=== PATIENT | male | born 1965 | race African-American/Black ===

== ENCOUNTER → 2016-07-26 | Outpatient (CLI) | payer OTHER ==
[2016-07-26 14:02] LABS: ALBUMIN 3.8 GM/DL (3.2-5.2); ANION GAP 7 MEQ/L (8-16); BLOOD UREA NITROGEN 12 MG/DL (7-18); CALCIUM LEVEL 9.1 MG/DL (8.5-10.1); CARBON DIOXIDE LEVEL 30 MEQ/L (21-32); CHLORIDE LEVEL 102 MEQ/L (98-107); CREATININE FOR GFR 1.19 MG/DL (0.70-1.30); GLOMERULAR FILTRATION RATE > 60.0 (>56); GLUCOSE, FASTING 267 MG/DL (70-105); PHOSPHORUS LEVEL 3.5 MG/DL (2.5-4.9); POTASSIUM SERUM 4.8 MEQ/L (3.5-5.1); SODIUM LEVEL 139 MEQ/L (136-145)
== END | disposition home or self-care (01) ==
LOC: M SMT 08:14
PROVIDERS: ATTEND Physician Assistant
DX: I11.9 Hypertensive heart disease without heart failure (principal)

== ENCOUNTER → 2016-10-01 | Outpatient (REF) | payer OTHER, MEDICAID ==
[2016-10-01 12:13] LABS: MEAN CORPUSCULAR HEMOGLOBIN 23.4 pg (27.0-33.0); MEAN CORPUSCULAR HGB CONC 28.8 g/dl (32.0-36.5); MEAN CORPUSCULAR VOLUME 81.2 fl (80.0-96.0); RED CELL DISTRIBUTION WIDTH 16.4 % (11.5-14.5); WHITE BLOOD COUNT 6.5 K/mm3 (4.0-10.0)
[2016-10-01 12:36] LABS: ALBUMIN 3.6 GM/DL (3.2-5.2); ALBUMIN/GLOBULIN RATIO 1.13 (1.00-1.93); ALKALINE PHOSPHATASE 108 U/L (45-117); ALT/SGPT 32 U/L (12-78); ANION GAP 6 MEQ/L (8-16); AST/SGOT 31 U/L (15-37); BILIRUBIN,TOTAL 0.9 MG/DL (0.2-1.0); BLOOD UREA NITROGEN 9 MG/DL (7-18); CARBON DIOXIDE LEVEL 30 MEQ/L (21-32); CHLORIDE LEVEL 105 MEQ/L (98-107); CHOLESTEROL LEVEL 117 MG/DL (<200); CREATININE FOR GFR 1.09 MG/DL (0.70-1.30); GLOMERULAR FILTRATION RATE > 60.0 (>56); GLUCOSE, FASTING 164 MG/DL (70-105); POTASSIUM SERUM 4.1 MEQ/L (3.5-5.1); SODIUM LEVEL 141 MEQ/L (136-145); TOTAL PROTEIN 6.8 GM/DL (6.4-8.2); TRIGLYCERIDES LEVEL 113 MG/DL (<150)
== END ==
LOC: M SFHCLERA 08:19
PROVIDERS: ATTEND Physician Assistant
DX: I10 Essential (primary) hypertension (principal); E78.2 Mixed hyperlipidemia; E11.65 Type 2 diabetes mellitus with hyperglycemia

== ENCOUNTER → 2017-01-16 | Outpatient (REF) | payer MEDICAID, OTHER ==
[2017-01-16 19:45] LABS: ALBUMIN 3.7 GM/DL (3.2-5.2); ALBUMIN/GLOBULIN RATIO 1.16 (1.00-1.93); ALKALINE PHOSPHATASE 103 U/L (45-117); ALT/SGPT 29 U/L (12-78); ANION GAP 10 MEQ/L (8-16); AST/SGOT 17 U/L (15-37); BILIRUBIN,TOTAL 0.6 MG/DL (0.2-1.0); BLOOD UREA NITROGEN 14 MG/DL (7-18); CALCIUM LEVEL 8.1 MG/DL (8.5-10.1); CARBON DIOXIDE LEVEL 25 MEQ/L (21-32); CHLORIDE LEVEL 107 MEQ/L (98-107); CREATININE FOR GFR 1.05 MG/DL (0.70-1.30); GLOMERULAR FILTRATION RATE > 60.0 (>56); GLUCOSE, FASTING 124 MG/DL (70-105); SODIUM LEVEL 142 MEQ/L (136-145); TOTAL PROTEIN 6.9 GM/DL (6.4-8.2)
== END ==
LOC: M SFHCLERA 14:55
PROVIDERS: ATTEND Physician Assistant
DX: E11.65 Type 2 diabetes mellitus with hyperglycemia (principal)

== ENCOUNTER → 2017-06-13 | Outpatient (CLI) | payer OTHER | LOC: M RAD 06:08 | DX: I70.213 Atherosclerosis of native arteries of extremities with intermittent claudication, bilateral legs (principal) | CPT/HCPCS: 93926 ==

== ENCOUNTER → 2017-07-15 | Outpatient (CLI) | payer OTHER, MEDICAID ==
[2017-07-15 07:38] LABS: BASO % 0.3 % (0.0-1.0); EOS # 0.2 10^3/uL (0.0-0.50); EOS % 2.6 % (0.0-3.0); HEMATOCRIT 30.4 % (42.0-52.0); HEMOGLOBIN 8.5 g/dl (14.0-18.0); IMMATURE GRANULOCYTE % 0.3 % (0-0); LYMPH # 1.7 10^3/uL (1.5-4.5); LYMPH % 26.9 % (24.0-44.0); MEAN CORPUSCULAR HEMOGLOBIN 18.2 pg (27.0-33.0); MONO # 0.8 10^3/uL (0.0-0.8); MONO % 12.3 % (0.0-5.0); NEUTROPHILS # 3.7 10^3/uL (1.8-7.7); NEUTROPHILS % 57.6 % (36.0-66.0); PLATELET COUNT, AUTOMATED 428 10^3/uL (150-450); RED BLOOD COUNT 4.68 10^6/uL (4.30-6.10); RED CELL DISTRIBUTION WIDTH 18.6 % (11.5-14.5); WHITE BLOOD COUNT 6.4 10^3/uL (4.0-10.0)
[2017-07-15 08:31] LABS: ANION GAP 8 MEQ/L (8-16); BLOOD UREA NITROGEN 13 MG/DL (7-18); CALCIUM LEVEL 8.8 MG/DL (8.5-10.1); CARBON DIOXIDE LEVEL 26 MEQ/L (21-32); CHLORIDE LEVEL 104 MEQ/L (98-107); CREATININE FOR GFR 1.18 MG/DL (0.70-1.30); GLOMERULAR FILTRATION RATE > 60.0 (>56); GLUCOSE, FASTING 255 MG/DL (70-100); POTASSIUM SERUM 4.3 MEQ/L (3.5-5.1); SODIUM LEVEL 138 MEQ/L (136-145)
== END ==
LOC: M LAB 06:43
DX: I70.213 Atherosclerosis of native arteries of extremities with intermittent claudication, bilateral legs (principal); M79.605 Pain in left leg
CPT/HCPCS: 80048

== ENCOUNTER → 2017-07-24 | Outpatient (REF) | payer OTHER, MEDICAID ==
[2017-07-24 20:33] LABS: HEMATOCRIT 28.9 % (42.0-52.0); HEMOGLOBIN 8.1 g/dl (14.0-18.0); MEAN CORPUSCULAR HEMOGLOBIN 18.6 pg (27.0-33.0); MEAN CORPUSCULAR VOLUME 66.4 fl (80.0-96.0); PLATELET COUNT, AUTOMATED 348 10^3/uL (150-450); RED BLOOD COUNT 4.35 10^6/uL (4.30-6.10); RED CELL DISTRIBUTION WIDTH 18.9 % (11.5-14.5); WHITE BLOOD COUNT 6.5 10^3/uL (4.0-10.0)
[2017-07-24 21:21] LABS: ESTIMATED AVERAGE GLUCOSE 171 MG/DL (60-110); HEMOGLOBIN A1c 7.6 %
[2017-07-24 21:22] LABS: FERRITIN 3 NG/ML (26-388); IRON (FE) 17 UG/DL (65-175); PERCENT SATURATION 4.2 % (19.7-50.0); TOTAL IRON BINDING CAPACITY 407 UG/DL (250-450)
[2017-07-24 21:27] LABS: FOLATE 11.7 NG/ML (>5.4); VITAMIN B12 LEVEL 282 PG/ML (247-911)
== END ==
LOC: M SFHCLERA 15:48
DX: D64.9 Anemia, unspecified (principal); E11.65 Type 2 diabetes mellitus with hyperglycemia
CPT/HCPCS: 82746

== ENCOUNTER → 2017-08-14 | Outpatient (REF) | payer OTHER, MEDICAID ==
[2017-08-14 12:33] LABS: HEMATOCRIT 32.8 % (42.0-52.0); HEMOGLOBIN 9.2 g/dl (14.0-18.0); MEAN CORPUSCULAR HEMOGLOBIN 19.6 pg (27.0-33.0); MEAN CORPUSCULAR VOLUME 69.8 fl (80.0-96.0); PLATELET COUNT, AUTOMATED 350 10^3/uL (150-450); RED CELL DISTRIBUTION WIDTH 23.6 % (11.5-14.5); WHITE BLOOD COUNT 6.8 10^3/uL (4.0-10.0)
[2017-08-14 13:19] LABS: ALBUMIN 3.7 GM/DL (3.2-5.2); ALBUMIN/GLOBULIN RATIO 1.09 (1.00-1.93); ALKALINE PHOSPHATASE 116 U/L (45-117); ALT/SGPT 23 U/L (12-78); ANION GAP 9 MEQ/L (8-16); AST/SGOT 17 U/L (7-37); BILIRUBIN,TOTAL 0.5 MG/DL (0.2-1.0); BLOOD UREA NITROGEN 10 MG/DL (7-18); CALCIUM LEVEL 8.9 MG/DL (8.5-10.1); CARBON DIOXIDE LEVEL 28 MEQ/L (21-32); CHLORIDE LEVEL 103 MEQ/L (98-107); CHOLESTEROL LEVEL 185 MG/DL (<200); CHOLESTEROL RISK RATIO 5.606 (<5); CREATININE FOR GFR 1.02 MG/DL (0.70-1.30); GLOMERULAR FILTRATION RATE > 60.0 (>56); GLUCOSE, FASTING 163 MG/DL (70-100); HDL CHOLESTEROL 33 MG/DL (>40); LDL CHOLESTEROL 114.6 MG/DL (<100); NON-HDL-C 152 MG/DL; POTASSIUM SERUM 4.1 MEQ/L (3.5-5.1); SODIUM LEVEL 140 MEQ/L (136-145); TOTAL PROTEIN 7.1 GM/DL (6.4-8.2); TRIGLYCERIDES LEVEL 187 MG/DL (<150)
== END ==
LOC: M SFHCLERA 09:58
DX: I10 Essential (primary) hypertension (principal); E78.2 Mixed hyperlipidemia; D64.9 Anemia, unspecified

== ENCOUNTER → 2017-09-27 | Outpatient (CLI) | payer OTHER ==
[~2017-09-27] MED LIST: HEPARIN 1,000 UNITS/ML 10ML VIAL (FOR RADIOLOGY& DIALYSIS ONLY) As Ordered; ISOVUE-300 61% 50ML VIAL (Q9967) As Ordered; LIDOCAINE 2% MDV 20 ML VIAL As Ordered; MIDAZOLAM INJ 2 MG/2 ML VIAL (J2250) As Ordered; fentaNYL 100 MCG/2 ML INJECTION (J3010) As Ordered
== END | disposition home or self-care (01) ==
LOC: M IRPRO 08:03
DX: I70.212 Atherosclerosis of native arteries of extremities with intermittent claudication, left leg (principal)
CPT/HCPCS: 36247

== ENCOUNTER → 2017-11-15 | Outpatient (REF) | payer OTHER, MEDICAID ==
[2017-11-15 11:21] LABS: HEMATOCRIT 37.9 % (42.0-52.0); HEMOGLOBIN 11.4 g/dl (13.5-17.5); MEAN CORPUSCULAR HEMOGLOBIN 23.8 pg (27.0-33.0); MEAN CORPUSCULAR HGB CONC 30.1 g/dl (32.0-36.5); MEAN CORPUSCULAR VOLUME 79.3 fl (80.0-96.0); PLATELET COUNT, AUTOMATED 299 10^3/uL (150-450); RED BLOOD COUNT 4.78 10^6/uL (4.30-6.10); WHITE BLOOD COUNT 5.5 10^3/uL (4.0-10.0)
[2017-11-15 12:22] LABS: CHOLESTEROL LEVEL 178 MG/DL (<200); CHOLESTEROL RISK RATIO 5.933 (<5); FERRITIN 14 NG/ML (26-388); HDL CHOLESTEROL 30 MG/DL (>40); IRON (FE) 45 UG/DL (65-175); LDL CHOLESTEROL 126.2 MG/DL (<100); NON-HDL-C 148 MG/DL; TRIGLYCERIDES LEVEL 109 MG/DL (<150)
[2017-11-15 13:19] LABS: ESTIMATED AVERAGE GLUCOSE 154 MG/DL (60-110)
== END ==
LOC: M SFHCLERA 08:36
DX: D64.9 Anemia, unspecified (principal); E11.65 Type 2 diabetes mellitus with hyperglycemia; E78.2 Mixed hyperlipidemia

== ENCOUNTER 2017-11-27 06:44 | Day surgery (SDC) | payer OTHER ==
[2017-11-27] MEDS ORDERED: LIDOCAINE 2% INJ 100 MG/5 ML SDV (FOR ANES.) As Ordered (06:52)
[2017-11-27] MEDS ORDERED: PROPOFOL 200 MG/20 ML VIAL As Ordered ×5 (06:52→08:39)
[2017-11-27] MEDS: NS 1,000 ML IV (07:12)
[2017-11-27] MEDS ORDERED: fentaNYL 100 MCG/2 ML INJECTION (J3010) As Ordered (07:21)
== END 2017-11-27 09:19 | disposition home or self-care (01) ==
LOC: M OPP 06:44
DX: D50.9 Iron deficiency anemia, unspecified (principal); Z86.010 Personal history of colon polyps; K64.8 Other hemorrhoids; K57.30 Diverticulosis of large intestine without perforation or abscess without bleeding; K22.8 Other specified diseases of esophagus; K44.9 Diaphragmatic hernia without obstruction or gangrene; I10 Essential (primary) hypertension; E78.5 Hyperlipidemia, unspecified; E11.9 Type 2 diabetes mellitus without complications; K59.00 Constipation, unspecified; K21.9 Gastro-esophageal reflux disease without esophagitis; E66.9 Obesity, unspecified; F17.210 Nicotine dependence, cigarettes, uncomplicated; Z79.899 Other long term (current) drug therapy; Z79.4 Long term (current) use of insulin; Z80.1 Family history of malignant neoplasm of trachea, bronchus and lung
CPT/HCPCS: 45378

== ENCOUNTER → 2018-03-31 | Outpatient (REF) | payer OTHER, MEDICAID ==
[2018-03-31 12:33] LABS: HEMATOCRIT 34.1 % (42.0-52.0); HEMOGLOBIN 10.5 g/dl (13.5-17.5); MEAN CORPUSCULAR HEMOGLOBIN 24.2 pg (27.0-33.0); MEAN CORPUSCULAR HGB CONC 30.8 g/dl (32.0-36.5); MEAN CORPUSCULAR VOLUME 78.8 fl (80.0-96.0); PLATELET COUNT, AUTOMATED 276 10^3/uL (150-450); RED BLOOD COUNT 4.33 10^6/uL (4.30-6.10); RED CELL DISTRIBUTION WIDTH 12.8 % (11.5-14.5); WHITE BLOOD COUNT 5.4 10^3/uL (4.0-10.0)
[2018-03-31 12:52] LABS: FERRITIN 15 NG/ML (26-388)
[2018-03-31 12:54] LABS: MAU/CREAT RATIO 137.1 MCG/MG (0.0-30.0)
[2018-03-31 13:14] LABS: ESTIMATED AVERAGE GLUCOSE 177 MG/DL (60-110); HEMOGLOBIN A1c 7.8 %
== END ==
LOC: M SFHCLERA 09:28
DX: D64.9 Anemia, unspecified (principal); E11.65 Type 2 diabetes mellitus with hyperglycemia
CPT/HCPCS: 83036

== ENCOUNTER → 2018-03-31 | Outpatient (CLI) | payer OTHER, MEDICAID | LOC: M LRY 09:42 | DX: M17.11 Unilateral primary osteoarthritis, right knee (principal) | CPT/HCPCS: 73560 ==

== ENCOUNTER → 2018-09-30 | Outpatient (CLI) | payer OTHER ==
[~2018-09-30] MED LIST changes: +AMLO10TA5; +ATOR1TAB21; +CARV25TA; +DOK100TA; +FERR325T3; +FLUTISP; +GLIP10TA6; -HEPARIN 1,000 UNITS/ML 10ML VIAL (FOR RADIOLOGY& DIALYSIS ONLY) As Ordered; +HYDR-3910; -ISOVUE-300 61% 50ML VIAL (Q9967) As Ordered; -LIDOCAINE 2% MDV 20 ML VIAL As Ordered; +LISI-672; +LORA-243; +METF10004; -MIDAZOLAM INJ 2 MG/2 ML VIAL (J2250) As Ordered; +MONT10TA2; +OMEP40CA2; +POLY1POW38; +TOUJ1.2I; -fentaNYL 100 MCG/2 ML INJECTION (J3010) As Ordered
[2018-09-30 10:32] LABS: ALT/SGPT 33 U/L (12-78); BILIRUBIN,TOTAL 0.6 MG/DL (0.2-1.0); BLOOD UREA NITROGEN 14 MG/DL (7-18); CARBON DIOXIDE LEVEL 31 MEQ/L (21-32); CHLORIDE LEVEL 99 MEQ/L (98-107); CHOLESTEROL LEVEL 199 MG/DL (<200); GLOMERULAR FILTRATION RATE > 60.0 (>56); GLUCOSE, FASTING 262 MG/DL (70-100); HDL CHOLESTEROL 33 MG/DL (>40); LDL CHOLESTEROL 127 MG/DL (<100); NON-HDL-C 166 MG/DL; POTASSIUM SERUM 4.2 MEQ/L (3.5-5.1); SODIUM LEVEL 135 MEQ/L (136-145); TRIGLYCERIDES LEVEL 197 MG/DL (<150)
[2018-09-30 10:33] LABS: TOTAL PROTEIN 7.3 GM/DL (6.4-8.2)
== END ==
LOC: M SMT 07:58
PROVIDERS: ATTEND Physician Assistant
DX: E78.00 Pure hypercholesterolemia, unspecified (principal)

== ENCOUNTER → 2018-10-31 | Outpatient (REF) | payer OTHER, MEDICAID ==
[2018-10-31 17:16] LABS: BASO % 0.4 % (0.0-1.0); EOS # 0.4 10^3/uL (0.0-0.50); EOS % 5.2 % (0.0-3.0); HEMATOCRIT 35.4 % (42.0-52.0); HEMOGLOBIN 10.1 g/dl (13.5-17.5); LYMPH # 2.4 10^3/uL (1.5-4.5); LYMPH % 31.5 % (24.0-44.0); MEAN CORPUSCULAR HGB CONC 28.5 g/dl (32.0-36.5); MONO # 0.7 10^3/uL (0.0-0.8); MONO % 9.8 % (0.0-5.0); NEUTROPHILS % 52.8 % (36.0-66.0); PLATELET COUNT, AUTOMATED 313 10^3/uL (150-450); WHITE BLOOD COUNT 7.6 10^3/uL (4.0-10.0)
[2018-10-31 17:41] LABS: HEMOGLOBIN A1c 10.6 %
== END ==
LOC: M SFHCLERA 10:19
PROVIDERS: ATTEND Nurse Practitioner Family
DX: E11.65 Type 2 diabetes mellitus with hyperglycemia (principal); D64.9 Anemia, unspecified

== ENCOUNTER → 2019-03-06 | Outpatient (REF) | payer OTHER, MEDICAID ==
[2019-03-06 19:13] LABS: CREATININE, URINE 90.6 MG/DL; MALB URINE SIEMENS 45.3 MG/L
[2019-03-06 21:55] LABS: HEMOGLOBIN A1c 11.9 %
== END ==
LOC: M SFHCLERA 09:57
PROVIDERS: ATTEND Nurse Practitioner Family
DX: E11.65 Type 2 diabetes mellitus with hyperglycemia (principal)

== ENCOUNTER → 2019-05-04 | Outpatient (REF) | payer OTHER, MEDICAID ==
[~2019-05-04] MED LIST changes: -OMEP40CA2; +OMEP40CA97
== END ==
LOC: M SFHCLERA 08:48
PROVIDERS: ATTEND Nurse Practitioner Family
DX: D64.9 Anemia, unspecified (principal)

== ENCOUNTER → 2019-05-22 | Outpatient (REF) | payer OTHER, MEDICAID ==
[2019-05-22 16:49] LABS: HEMOGLOBIN A1c 9.9 %
== END ==
LOC: M SFHCLERA 10:03
PROVIDERS: ATTEND Nurse Practitioner Family
DX: E11.65 Type 2 diabetes mellitus with hyperglycemia (principal)

== ENCOUNTER → 2019-10-14 | Outpatient (CLI) | payer OTHER, MEDICAID ==
[~2019-10-14] MED LIST changes: -MONT10TA2; +MONT10TA4
[2019-10-14 17:07] LABS: ALBUMIN 3.6 GM/DL (3.2-5.2); ALT/SGPT 34 U/L (12-78); BILIRUBIN,TOTAL 0.6 MG/DL (0.2-1.0); BLOOD UREA NITROGEN 10 MG/DL (7-18); CALCIUM LEVEL 8.6 MG/DL (8.5-10.1); CARBON DIOXIDE LEVEL 29 MEQ/L (21-32); CHLORIDE LEVEL 101 MEQ/L (98-107); CHOLESTEROL LEVEL 97 MG/DL (<200); CHOLESTEROL RISK RATIO 2.852 (<5); CREATININE FOR GFR 1.02 MG/DL (0.70-1.30); GLOMERULAR FILTRATION RATE > 60.0 (>56); GLUCOSE, FASTING 251 MG/DL (70-100); HDL CHOLESTEROL 34 MG/DL (>40); LDL CHOLESTEROL 45 MG/DL (<100); NON-HDL-C 63 MG/DL; POTASSIUM SERUM 4.4 MEQ/L (3.5-5.1); SODIUM LEVEL 135 MEQ/L (136-145); TOTAL PROTEIN 7.2 GM/DL (6.4-8.2); TRIGLYCERIDES LEVEL 92 MG/DL (<150)
== END ==
LOC: M LRY 09:18
PROVIDERS: ATTEND Physician Assistant
DX: E78.00 Pure hypercholesterolemia, unspecified (principal)

== ENCOUNTER → 2019-10-14 | Outpatient (REF) | payer OTHER, MEDICAID ==
[2019-10-14 16:52] LABS: BASO % 0.5 % (0.0-1.0); EOS # 0.3 10^3/uL (0.0-0.5); HEMATOCRIT 36.8 % (42.0-52.0); HEMOGLOBIN 10.8 g/dl (13.5-17.5); LYMPH # 2.1 10^3/uL (1.5-5.0); LYMPH % 36.1 % (24.0-44.0); MEAN CORPUSCULAR HEMOGLOBIN 23.5 pg (27.0-33.0); MEAN CORPUSCULAR HGB CONC 29.3 g/dl (32.0-36.5); MONO # 0.7 10^3/uL (0.0-0.8); MONO % 11.5 % (0.0-5.0); NEUTROPHILS # 2.7 10^3/uL (1.5-8.5); NEUTROPHILS % 46.6 % (36.0-66.0); PLATELET COUNT, AUTOMATED 270 10^3/uL (150-450); WHITE BLOOD COUNT 5.8 10^3/uL (4.0-10.0)
[2019-10-14 17:33] LABS: HEMOGLOBIN A1c 10.1 %
== END ==
LOC: M SFHCLERA 09:11
PROVIDERS: ATTEND Nurse Practitioner Family
DX: D50.9 Iron deficiency anemia, unspecified (principal); E11.65 Type 2 diabetes mellitus with hyperglycemia

== ENCOUNTER → 2020-04-19 | Outpatient (CLI) | payer OTHER, MEDICAID ==
[~2020-04-19] MED LIST changes: -AMLO10TA5; +AMLO1TAB25; -LISI-672; +LISI30TA4
[2020-04-19 11:05] LABS: BLOOD UREA NITROGEN 11 MG/DL (7-18); CARBON DIOXIDE LEVEL 29 MEQ/L (21-32); CHLORIDE LEVEL 102 MEQ/L (98-107); CREATININE FOR GFR 1.04 MG/DL (0.70-1.30); GLOMERULAR FILTRATION RATE > 60.0 (>56); GLUCOSE, FASTING 299 MG/DL (70-100); POTASSIUM SERUM 4.3 MEQ/L (3.5-5.1); SODIUM LEVEL 137 MEQ/L (136-145)
== END ==
LOC: M PLALAB 08:25
PROVIDERS: ATTEND Physician Assistant
DX: I11.9 Hypertensive heart disease without heart failure (principal)

== ENCOUNTER → 2020-06-23 | Outpatient (CLI) | payer OTHER, MEDICAID ==
[~2020-06-23] MED LIST changes: -DOK100TA; +DOK100TA2; -MONT10TA4; +MONT5TAB2
--- NOTE | 2020-06-24 05:57 | REPPI ---
INDICATION: INJURY COMPARISON: None. TECHNIQUE: AP, lateral, bilateral oblique views left foot. FINDINGS: The osseous structures and joint spaces are intact and normal. There is no evidence for acute fracture or dislocation. Surrounding soft tissues are unremarkable. No subcutaneous emphysema or radiodense foreign body. IMPRESSION: . No acute fracture or dislocation. <Electronically signed by Ramon Helms > 06/24/20 0543
--- NOTE | 2020-06-24 05:58 | REPPI ---
INDICATION: INJURY COMPARISON: None. TECHNIQUE: AP, lateral, bilateral oblique views. FINDINGS: Mild swelling. No acute fracture or dislocation. Ankle mortise intact. IMPRESSION: No acute fracture or dislocation. <Electronically signed by Ramon Helms > 06/24/20 0583
== END ==
LOC: M PLAIMG 12:16
PROVIDERS: ATTEND Physician Assistant
DX: S99.912A Unspecified injury of left ankle, initial encounter (principal); X58.XXXA Exposure to other specified factors, initial encounter; Y92.89 Other specified places as the place of occurrence of the external cause; Y93.9 Activity, unspecified; Y99.9 Unspecified external cause status

== ENCOUNTER → 2020-08-26 | Outpatient (CLI) | payer OTHER, MEDICAID ==
[~2020-08-26] MED LIST changes: +MONT10TA10; -MONT5TAB2
[2020-08-26 11:10] LABS: ALBUMIN 3.9 GM/DL (3.2-5.2); ALT/SGPT 24 U/L (12-78); BILIRUBIN,TOTAL 0.8 MG/DL (0.2-1.0); BLOOD UREA NITROGEN 14 MG/DL (7-18); CARBON DIOXIDE LEVEL 28 MEQ/L (21-32); CHLORIDE LEVEL 105 MEQ/L (98-107); CHOLESTEROL LEVEL 125 MG/DL (<200); CHOLESTEROL RISK RATIO 3.205 (<5); CREATININE FOR GFR 0.95 MG/DL (0.70-1.30); GLOMERULAR FILTRATION RATE > 60.0 (>56); GLUCOSE, FASTING 185 MG/DL (70-100); HDL CHOLESTEROL 39 MG/DL (>40); LDL CHOLESTEROL 64 MG/DL (<100); NON-HDL-C 86 MG/DL; POTASSIUM SERUM 4.2 MEQ/L (3.5-5.1); SODIUM LEVEL 139 MEQ/L (136-145); TOTAL PROTEIN 7.1 GM/DL (6.4-8.2); TRIGLYCERIDES LEVEL 109 MG/DL (<150)
== END ==
LOC: M PLALAB 08:09
PROVIDERS: ATTEND Physician Assistant
DX: E78.00 Pure hypercholesterolemia, unspecified (principal)

== ENCOUNTER → 2020-08-26 | Outpatient (REF) | payer OTHER, MEDICAID ==
[2020-08-26 10:17] LABS: BASO % 0.5 % (0.0-1.0); EOS # 0.4 10^3/uL (0.0-0.5); EOS % 6.3 % (0.0-3.0); HEMATOCRIT 39.6 % (42.0-52.0); HEMOGLOBIN 11.6 g/dl (13.5-17.5); LYMPH # 1.9 10^3/uL (1.5-5.0); LYMPH % 28.5 % (24.0-44.0); MEAN CORPUSCULAR HEMOGLOBIN 23.2 pg (27.0-33.0); MEAN CORPUSCULAR HGB CONC 29.3 g/dl (32.0-36.5); MEAN CORPUSCULAR VOLUME 79.2 fl (80.0-96.0); MONO # 0.9 10^3/uL (0.0-0.8); MONO % 13.5 % (2.0-8.0); NEUTROPHILS # 3.3 10^3/uL (1.5-8.5); NEUTROPHILS % 50.9 % (36.0-66.0); PLATELET COUNT, AUTOMATED 295 10^3/uL (150-450); WHITE BLOOD COUNT 6.5 10^3/uL (4.0-10.0)
[2020-08-26 10:34] LABS: HEMOGLOBIN A1c 7.1 %
[2020-08-26 10:51] LABS: ALBUMIN 3.8 GM/DL (3.2-5.2); ALT/SGPT 24 U/L (12-78); BILIRUBIN,TOTAL 0.8 MG/DL (0.2-1.0); BLOOD UREA NITROGEN 14 MG/DL (7-18); CALCIUM LEVEL 8.8 MG/DL (8.5-10.1); CARBON DIOXIDE LEVEL 29 MEQ/L (21-32); CHLORIDE LEVEL 106 MEQ/L (98-107); CHOLESTEROL LEVEL 123 MG/DL (<200); CHOLESTEROL RISK RATIO 3.416 (<5); CREATININE FOR GFR 0.97 MG/DL (0.70-1.30); FERRITIN 23 NG/ML (26-388); GLOMERULAR FILTRATION RATE > 60.0 (>56); GLUCOSE, FASTING 184 MG/DL (70-100); HDL CHOLESTEROL 36 MG/DL (>40); LDL CHOLESTEROL 66 MG/DL (<100); NON-HDL-C 87 MG/DL; POTASSIUM SERUM 4.3 MEQ/L (3.5-5.1); SODIUM LEVEL 140 MEQ/L (136-145); TOTAL PROTEIN 6.9 GM/DL (6.4-8.2); TRIGLYCERIDES LEVEL 104 MG/DL (<150)
[2020-08-26 11:17] LABS: MAU/CREAT RATIO 316.7 MCG/MG (0.0-30.0)
== END ==
LOC: M PLALAB 08:08
PROVIDERS: ATTEND Nurse Practitioner Family
DX: D50.9 Iron deficiency anemia, unspecified (principal); E11.65 Type 2 diabetes mellitus with hyperglycemia; E78.2 Mixed hyperlipidemia; Z72.0 Tobacco use

== ENCOUNTER 2020-12-16 02:01 | Emergency (ER) ==
[~2020-12-16 02:01] MED LIST changes: +OMEP40CA4; -OMEP40CA97
[2020-12-16] MEDS ORDERED: EPINEPHrine 1MG/10ML SYRINGE 1.5IN As Ordered ONE (02:39)
--- NOTE | 2020-12-22 19:47 | CCN ---
CRITICAL CARE NOTE DATE: 12/16/2020 I was called to the emergency department to evaluate this 55-year-old male who developed dyspnea at home. EMS was called. He was found to be asystolic at the scene, resuscitated and transferred into the emergency department where an endotracheal tube was placed. He was found in asystole, was aggressively resuscitated with multiple doses of epinephrine. Ventricular tachycardia was appreciated. Ventricular fibrillation was appreciated and after greater than one hour, return to spontaneous circulation occurred. PAST MEDICAL HISTORY: 1. Hypertension. 2. Dyslipidemia. 3. Tobacco use of greater than 20 years. 4. Anemia. 5. Atherosclerotic peripheral vascular disease. 6. Left ventricular hypertrophy. 7. Aortic stenosis. The son reported to emergency providers that the patient's dyspneic complaint was however new. The case has been reviewed with the emergency department providers and the steps in resuscitation were reviewed. PHYSICAL EXAMINATION: At bedside, his temperature is 96, pulse 87, respirations 26/26 delivered, blood pressure 100/84. He is on dopamine and Levophed drip. His [place] coma scale is 3. HEENT: His pupils are widely dilated. Endotracheal tube is at 35 cm. There is an oral endotracheal tube draining bloody secretions. Neck: [place]. Heart: Heart sounds regular with a systolic murmur. Breath sounds diminished bilaterally but symmetric. Abdomen: Obese. No appreciable bowel sounds. Extremities: Flaccid. DIAGNOSTIC STUDIES: His white cell count was 14.3, hemoglobin 11.7, hematocrit 44.5, platelet count 135,000. Sodium 140, potassium 5.6, chloride 103, CO2 13, BUN 11, creatinine 1.17. Glucose 474. His AST and ALT are 184 and 164 respectively. Troponin 0.15. Arterial blood gases showed a pH of 6.52, pCO2 125, pO2 93. Repeat arterial blood gases: pH 6.86, pCO2 91, pO2 98. Chest x-ray shows evidence of pneumonia. CT of the head shows significant edema. The primary problem requiring critical attention is: 1. Cardiopulmonary arrest, status post extensive resuscitation with delayed return of spontaneous circulation. 2. Shock. Likely cardiogenic, possibly septic. The patient is now on multiple pressors. We will target a mean arterial pressure of 65. 3. Pneumonia. Broad spectrum antibiotics will be administered. 4. Hypoxic brain injury. CT scan shows diffuse edema. I will await formal report. 5. Mixed acidosis. His bicarb is quite low. We will attempt to improve his pH with increasing minute ventilation, may require IV bicarb. 6. Acute respiratory failure. Initiate mechanical ventilation with pressure and control and repeat arterial blood gases. The patient's condition is critical. Prognosis is poor. The case was reviewed with the emergency department physicians. I have updated the ICU care team with regard to the patient's status and plans of care. 128 minutes was spent in the provision of bedside critical care and coordination excluding any time for the performance of procedures.
== END 2020-12-16 08:56 | disposition other institution (70) ==
LOC: EDBD → MERGE 02:01 → M ED 02:01
DX: I46.9 Cardiac arrest, cause unspecified (principal)

== ENCOUNTER 2020-12-16 02:37 | Inpatient (IN) | payer MEDICAID, OTHER ==
[~2020-12-16] VITALS: Ht 180.3 cm; Wt 145.5 kg
[2020-12-16] MEDS ORDERED: EPINEPHrine 1MG/10ML SYRINGE 1.5IN As Ordered ONE (02:58)
[2020-12-16 03:14] LABS: HEMATOCRIT 44.5 % (42.0-52.0); HEMOGLOBIN 11.7 g/dl (13.5-17.5); MEAN CORPUSCULAR HEMOGLOBIN 24.8 pg (27.0-33.0); MEAN CORPUSCULAR HGB CONC 26.3 g/dl (32.0-36.5); MEAN CORPUSCULAR VOLUME 94.3 fl (80.0-96.0); PLATELET COUNT, AUTOMATED 135 10^3/uL (150-450); RED BLOOD COUNT 4.72 10^6/uL (4.30-6.10)
[2020-12-16 03:28] LABS: WHITE BLOOD COUNT 14.3 10^3/uL (4.0-10.0)
[2020-12-16 03:34] LABS: ABG PARTIAL PRESSURE O2 83.1 mmHg (75.0-100.0)
[2020-12-16 03:36] LABS: ABG BASE EXCESS -30.8 (-2.0-2.0); ABG HCO3 10.2 MEQ/L (22.0-26.0); ABG O2 SATURATION 77.6 % (95.0-99.0); ABG STANDARD HCO3 4.2 MEQ/L (22.0-26.0); ABG TOTAL CO2 14.1 MEQ/L (22.0-29.0)
[2020-12-16 03:37] LABS: ABG PARTIAL PRESSURE CO2 125.3 mmHg (35.0-45.0); ABG pH (ARTERIAL) 6.529 UNITS (7.350-7.450)
[2020-12-16 03:42] LABS: INR 2.29; PROTHROMBIN TIME 25.7 SECONDS (12.5-14.3)
[2020-12-16 03:48] LABS: ATYPICAL LYMPH 8 % (0-5); EOSINOPHILS 2 % (0-3); LYMPHOCYTES 60 % (16-44); MONOCYTES 6 % (0-5); NEUTROPHILS 22 % (28-66); PLATELET ESTIMATE NORMAL (NORMAL)
[2020-12-16 03:49] LABS: POLYCHROMASIA 1+
[2020-12-16 03:50] LABS: ALBUMIN 2.9 GM/DL (3.2-5.2); ALT/SGPT 164 U/L (12-78); BILIRUBIN,DIRECT < 0.1 MG/DL (0.0-0.2); BILIRUBIN,TOTAL 0.4 MG/DL (0.2-1.0); BLOOD UREA NITROGEN 11 MG/DL (7-18); CALCIUM LEVEL 9.1 MG/DL (8.5-10.1); CARBON DIOXIDE LEVEL 13 MEQ/L (21-32); CHLORIDE LEVEL 103 MEQ/L (98-107); CK-MB VALUE MASS 4.5 NG/ML (<3.6); CPK CREATINE PHOSPHOKINASE 424 U/L (39-308); CREATININE FOR GFR 1.71 MG/DL (0.70-1.30); GLOMERULAR FILTRATION RATE 53.5 (>56); GLUCOSE, FASTING 474 MG/DL (70-100); LIPASE 492 U/L (73-393); MB/CK RELATIVE INDEX 1.06 (< OR =4); POTASSIUM SERUM 5.6 MEQ/L (3.5-5.1); SODIUM LEVEL 140 MEQ/L (136-145); TOTAL PROTEIN 6.5 GM/DL (6.4-8.2); TROPONIN I 0.15 NG/ML (< 0.10)
[2020-12-16 03:57] LABS: PARTIAL THROMBOPLASTIN TIME 137.4 SECONDS (24.2-38.5)
[2020-12-16] MEDS ORDERED: DOPamine 400 MG/500 ML BAG IN D5W (800MCG/ML) (J1265) As Ordered ONE (04:28)
[2020-12-16] MEDS ORDERED: NOREPINEPHRINE 4 MG/4 ML AMP As Ordered ONE (04:29)
[2020-12-16] MEDS ORDERED: NS 500 ML IV ONE (04:35)
[2020-12-16] MEDS ORDERED: DOPamine HCL 400 MG in IV 1 EA IV SCH ×2 (04:35→05:30)
[2020-12-16] MEDS ORDERED: NS 1,000 ML IV ONE (04:35)
[2020-12-16] MEDS ORDERED: NOREPINEPHRINE BITARTRATE 8 MG in D5W 492 ML IV SCH ×2 (04:35→16:00)
[2020-12-16 04:50] LABS: RSV AMPLIFICATION NEGATIVE (NEGATIVE)
[2020-12-16] MEDS ORDERED: MIDAZOLAM INJ 2MG/2ML VIAL (J2250 PER 1MG) IV PRN (04:50)
[2020-12-16] MEDS ORDERED: SODIUM BICARBONATE 8.4% INJ 50 ML SYRINGE IV STA (05:00)
[2020-12-16] MEDS ORDERED: cefTRIAXone SOD 1 GM in D5W MINI-BAG PLUS 50 ML IV SCH (05:00)
[2020-12-16 05:15] LABS: AMPHETAMINES LEVEL URINE NEGATIVE (NEGATIVE); BARBITURATES URINE NEGATIVE (NEGATIVE); BENZODIAZEPINES URINE NEGATIVE (NEGATIVE); CANNABINOIDS URINE NEGATIVE (NEGATIVE); COCAINE METABOLITE URINE NEGATIVE (NEGATIVE); METHADONE URINE NEGATIVE (NEGATIVE); OPIATES URINE NEGATIVE (NEGATIVE); PHENCYCLIDINE URINE NEGATIVE (NEGATIVE)
[2020-12-16 05:20] VITALS: BP 86/52
--- NOTE | 2020-12-16 05:57 | REPVR ---
PROCEDURE INFORMATION: Exam: CT Head Without Contrast Exam date and time: 12/16/2020 4:01 AM Age: 55 years old Clinical indication: Injury or trauma; Fall; Unconscious; Additional info: Unresponsive TECHNIQUE: Imaging protocol: Computed tomography of the head without contrast. Radiation optimization: All CT scans at this facility use at least one of these dose optimization techniques: automated exposure control; mA and/or kV adjustment per patient size (includes targeted exams where dose is matched to clinical indication); or iterative reconstruction. COMPARISON: No relevant prior studies available. FINDINGS: Tubes, catheters and devices: ET tube and OG tube in position. Brain: There is effacement of peripheral sulci. Small basal cisterns with minimal CSF in the suprasellar cistern. No definite intracranial hemorrhage is identified and findings suggest cerebral edema. Cerebral ventricles: Small central ventricular system with slightly greater compression of the right lateral ventricle compared to the left. Paranasal sinuses: Minimal sphenoid, left maxillary and ethmoid sinus mucosal thickening Mastoid air cells: Visualized mastoid air cells are well aerated. Bones/joints: Unremarkable. No acute fracture. Soft tissues: Unremarkable. IMPRESSION: 1. Effacement of peripheral sulci and small ventricular system and basal cisterns for age consistent with diffuse cerebral edema. 2. Minimal left maxillary, sphenoid and ethmoid sinus disease. 3. ET and OG tubes in position. 4. No midline shift and no definite intracranial hemorrhage is identified. Electronically signed by: Brandon Cabezas On 12/16/2020 05:56:27 AM
--- NOTE | 2020-12-16 05:58 | REPVR ---
PROCEDURE INFORMATION: Exam: CT Abdomen And Pelvis Without Contrast Exam date and time: 12/16/2020 4:01 AM Age: 55 years old Clinical indication: Other: Unresponsive TECHNIQUE: Imaging protocol: Computed tomography of the abdomen and pelvis without contrast. Radiation optimization: All CT scans at this facility use at least one of these dose optimization techniques: automated exposure control; mA and/or kV adjustment per patient size (includes targeted exams where dose is matched to clinical indication); or iterative reconstruction. COMPARISON: CT ABD PELVIS W/O CONTRAST 03/04/2014 12:01 PM FINDINGS: There is airspace consolidation with air bronchograms in the posterior lung bases bilaterally likely consistent with multi lobar infiltrate/pneumonia. Within the limits of unenhanced examination, the liver, spleen, and pancreas are grossly normal. Mild thickening of the adrenal glands bilaterally, similar to previous examination and likely consistent with adenomatous change. Gallbladder is somewhat contracted with no evidence of calcified gallstones. Kidneys are grossly normal with no focal renal abnormalities, ureterolithiasis or obstructive uropathy. Atherosclerotic changes identified within the abdominal aorta and aortic branch vessels with no evidence of aneurysmal dilatation. Small and large bowel loops are grossly normal. No evidence of enteric obstruction. Mild colonic diverticular changes with no evidence of diverticulitis. Pelvic organs are grossly normal. Urinary bladder is decompressed with a Rubio catheter. No significant free fluid in the abdomen or pelvis. There is a left common femoral central venous catheter with the tip extending to the left external iliac vein. IMPRESSION: Bibasilar airspace consolidation with air bronchograms likely consistent with multi lobar infiltrate/pneumonia. No definite acute intra-abdominal or pelvic process. Additional nonemergent findings as described above. Electronically signed by: Hernandez Dickinson On 12/16/2020 05:57:55 AM
[2020-12-16] MEDS ORDERED: HEPARIN SOD (PORCINE) 5000UNITS/ML 1ML VIAL/SYRINGE SC SCH (06:00)
--- NOTE | 2020-12-16 06:00 | REPVR ---
PROCEDURE INFORMATION: Exam: CT Cervical Spine Without Contrast Exam date and time: 12/16/2020 4:01 AM Age: 55 years old Clinical indication: Injury or trauma; Fall; Unconscious; Additional info: Unresponsive TECHNIQUE: Imaging protocol: Computed tomography images of the cervical spine without contrast. Radiation optimization: All CT scans at this facility use at least one of these dose optimization techniques: automated exposure control; mA and/or kV adjustment per patient size (includes targeted exams where dose is matched to clinical indication); or iterative reconstruction. COMPARISON: CR Chest, 1 view 12/16/2020 2:45 AM FINDINGS: Tubes, catheters and devices: ET and OG tubes in position. Bones/joints: No acute fracture. Normal alignment. Discs/Spinal canal/Neural foramina: No significant disc protrusion. No severe spinal canal stenosis. No significant neural foraminal narrowing. Lungs: Biapical infiltrates with interstitial coarsening and question of right pleural effusion. Soft tissues: Unremarkable. IMPRESSION: 1. ET and OG tubes in position. 2. Biapical pulmonary infiltrates with coarse interstitium and right pleural effusion. 3. Otherwise negative CT cervical spine. No fracture or subluxation is evident and no spinal or foraminal stenosis. Electronically signed by: Brandon Cabezas On 12/16/2020 06:00:02 AM
--- NOTE | 2020-12-16 06:03 | REPVR ---
PROCEDURE INFORMATION: Exam: CT Chest Without Contrast; Diagnostic Exam date and time: 12/16/2020 4:01 AM Age: 55 years old Clinical indication: Other: Unresponsive TECHNIQUE: Imaging protocol: Diagnostic computed tomography of the chest without contrast. Radiation optimization: All CT scans at this facility use at least one of these dose optimization techniques: automated exposure control; mA and/or kV adjustment per patient size (includes targeted exams where dose is matched to clinical indication); or iterative reconstruction. COMPARISON: CR Chest, 1 view 12/16/2020 2:45 AM FINDINGS: Moderate airspace consolidation with air bronchograms in the posterior segments of the upper and lower lobes bilaterally. Mild interstitial infiltrates in the anterior lung hall. Findings are likely consistent with multi lobar infiltrate/pneumonia. No large pleural effusion. Mediastinal structures are grossly normal. Endotracheal tube and nasogastric tube are present in satisfactory position. IMPRESSION: Airspace consolidation with air bronchograms in the posterior segments of the upper and lower lobes bilaterally likely consistent with multi lobar infiltrate/pneumonia. Clinical correlation and follow-up to resolution is recommended. Additional nonemergent findings as described above. Electronically signed by: Hernandez Dickinson On 12/16/2020 06:03:15 AM
--- NOTE | 2020-12-16 06:05 | REPVR ---
PROCEDURE INFORMATION: Exam: XR Chest Exam date and time: 12/16/2020 4:38 AM Age: 55 years old Clinical indication: Other: Line placement TECHNIQUE: Imaging protocol: XR of the chest. Views: 1 view. COMPARISON: CT ABD PELVIS W/O CONTRAST 03/04/2014 12:01 PM FINDINGS: Cardiac silhouette is within normal limits. Patchy interstitial and airspace opacities in the mid to upper lung hall bilaterally suspicious for multi lobar infiltrate/pneumonia. No large pleural effusion. Nasogastric tube is present with the tip extending below the left hemidiaphragm. IMPRESSION: Examination limited by portable technique. Patchy interstitial and airspace opacities in the mid to upper lung hall likely consistent with multi lobar infiltrate/pneumonia. Nasogastric tube in satisfactory position. Electronically signed by: Hernandez Dickinson On 12/16/2020 06:04:48 AM
[2020-12-16] MEDS ORDERED: EPINEPHrine 1MG/10ML SYRINGE 1.5IN IV STA (06:15)
[2020-12-16] MEDS ORDERED: EPINEPHrine 1MG/10ML SYRINGE 1.5IN ONE ×2 (06:20→07:47)
[2020-12-16] MEDS ORDERED: IPRATROPIUM 0.5MG/ALBUTEROL 2.5MG INH SOL UD 3ML (DUONEB) NEB SCH (08:00)
[2020-12-16] MEDS ORDERED: CHLORHEXIDINE GLUCONATE 0.12 % 15ML UDC (PERIDEX ORAL RINSE) MT SCH (09:00)
[2020-12-16] MEDS ORDERED: PANTOPRAZOLE 40MG VIAL (C9113 PER 1) IV SCH (09:00)
--- NOTE | 2020-12-16 09:33 | CCN ---
CRITICAL CARE NOTE DATE: 12/16/2020 TIME: 0600 a.m. Following evaluation in the emergency department, the patient was transferred to the intensive care unit. Shortly after arrival, his cardiac rhythm deteriorated to ventricular tachycardia. Cardioversion was attempted. Asystole resulted and resuscitation ensued. Despite aggressive resuscitation, CPR, and ACLS, the patient did not return to cardiac rhythm and did not reestablish a pulse. Resuscitation was felt unsuccessful and he was pronounced at 0539 a.m. Attempts are in progress to contact family. Edited: sanket 12/16/2020 1027 MTDD
== END 2020-12-16 10:35 | disposition expired | DRG 196 ==
LOC: M ED 02:37 → M ED INP 04:46 → M ICU 05:20
PROVIDERS: ADMIT Internal Medicine Pulmonary Disease; ATTEND Internal Medicine Pulmonary Disease
DX: I46.9 Cardiac arrest, cause unspecified (principal); J96.00 Acute respiratory failure, unspecified whether with hypoxia or hypercapnia; R57.0 Cardiogenic shock; G93.1 Anoxic brain damage, not elsewhere classified; E87.4 Mixed disorder of acid-base balance; J18.9 Pneumonia, unspecified organism; E11.65 Type 2 diabetes mellitus with hyperglycemia; I10 Essential (primary) hypertension; K21.9 Gastro-esophageal reflux disease without esophagitis; D50.9 Iron deficiency anemia, unspecified; E78.2 Mixed hyperlipidemia; I49.01 Ventricular fibrillation; I47.2 Ventricular tachycardia